=== PATIENT | male | born 1975 | race Caucasian/White ===

== ENCOUNTER 2021-04-28 12:01 | Emergency (ER) | payer OTHER ==
[~2021-04-28] VITALS: Ht 172.7 cm; Wt 68.0 kg
[2021-04-28] MEDS ORDERED: HYDROCODON-ACE1 EAC7 PO (13:05)
[2021-04-28 13:53] VITALS: BP 142/70
== END 2021-04-28 13:53 | disposition home or self-care (01) ==
LOC: M.ERS 12:01
DX: S02.609A Fracture of mandible, unspecified, initial encounter for closed fracture (principal); W22.8XXA Striking against or struck by other objects, initial encounter; Y93.89 Activity, other specified; Y92.89 Other specified places as the place of occurrence of the external cause; Y99.8 Other external cause status